=== PATIENT | male | born 1945 | race Caucasian/White ===

== ENCOUNTER 2017-11-07 07:13 | Day surgery (SDC) | payer MEDICARE, MEDICAID ==
[2016-08-03 10:26] VITALS: BMI 34.2
[~2017-11-07 07:13] MED LIST: Ciprofloxacin 0.3% OPTH SOLN OS SCH; Cyclopentolate 1% Opth (2 ml) OS SCH; Flurbiprofen 0.03% Opht SOLN OS SCH; Lactated Ringer's 500 ML IV ONE; Phenylephrine 2.5% Opht Soln OS SCH; Tropicamide 1% Opht SOLUTION OS SCH
[2017-11-07] MEDS ORDERED: Tobramycin/Dexamethasone OPHT OINT ONE (07:33)
[2017-11-07] MEDS ORDERED: Carbachol 0.01% IO ONE (07:33)
[2017-11-07] MEDS ORDERED: Povidone Iodine Ophthalmic 5% Soln ONE (07:33)
[2017-11-07] MEDS ORDERED: Tobramycin/Dexamethasone (Tobradex) Opth Sol (2.5 ml) ONE (07:33)
[2017-11-07] MEDS ORDERED: Tetracaine 0.5% Ophth (OR ONLY) ONE (07:33)
[2017-11-07] MEDS ORDERED: Chondroitin/Hyaluronate Opth Syringe KIT (0.55 ml-0.5 ml) IO ONE (07:34)
[2017-11-07] MEDS ORDERED: Hyaluronidase Human, Recombi 150 U/ML VIAL ONE (07:34)
[2017-11-07] MEDS ORDERED: Lactated Ringer's 1,000 ML IV ONE (08:15)
[2017-11-07] MEDS ORDERED: Propofol 10 mg/ml Inj (20 ML) ONE (11:10)
[2017-11-07 12:27] VITALS: RESP 18; TEMP 97
[2017-11-07 12:29] VITALS: BP 142/73; PULSE 87
[2017-11-07 13:29] VITALS: O2SAT 100
== END 2017-11-07 12:38 | disposition home or self-care (01) ==
LOC: C.SDS 07:13
PROVIDERS: ATTEND Ophthalmology
DX: H25.12 Age-related nuclear cataract, left eye (principal); I10 Essential (primary) hypertension; N40.0 Benign prostatic hyperplasia without lower urinary tract symptoms; F20.9 Schizophrenia, unspecified; Z79.899 Other long term (current) drug therapy
CPT/HCPCS: 66984; J2704; J3470; J7120